=== PATIENT | female | born 1995 | race Caucasian/White ===

== ENCOUNTER 2023-09-24 17:56 | Emergency (ER) | payer OTHER ==
[~2023-09-24] VITALS: Ht 167.6 cm; Wt 65.3 kg
[2023-09-24 18:39] VITALS: BP 125/72
[2023-09-24] MEDS ORDERED: MOXIOPS LEFTEYE (20:56)
== END 2023-09-24 21:04 | disposition home or self-care (01) ==
LOC: ER 17:56
DX: H16.002 Unspecified corneal ulcer, left eye (principal); Z88.1 Allergy status to other antibiotic agents
CPT/HCPCS: 99282; A9270